=== PATIENT | female | born 1945 | race Caucasian/White ===

== ENCOUNTER → 2019-06-02 09:31 | Outpatient (CLI) | payer MEDICARE, SELFPAY ==
--- NOTE | ~2019-06-02 | XR_ITS ---
EXAMINATION: XR chest 2V EXAM DATE: 06/02/2019 09:43 INDICATION: Cough since March. Left-sided ear infection. TECHNIQUE: Frontal and lateral projections of the chest obtained and reviewed. Comparison is made to prior examination from 04/14/2018. FINDINGS: The lungs are clear. There are no pleural effusions. The cardiomediastinal silhouette is within normal limits. There is no pneumothorax suspected. The bones and soft tissues are unremarkab le. Left axillary surgical clips. Mild to moderate chronic hyperinflation. There is moderate slidin g gastroesophageal hiatal hernia. IMPRESSION: 1. No acute cardiopulmonary findings. 2. Moderate-sized hiatal hernia. 3. Mild to moderate hyperinflation. Reviewed, dictated and finalized at location A. TRIC HOIST OPERATOR
== END ==
PROVIDERS: PCP Family Medicine; Visit Provider Family Medicine
DX: R05 Cough (principal); R91.8 Other nonspecific abnormal finding of lung field; K44.9 Diaphragmatic hernia without obstruction or gangrene
CPT/HCPCS: 71046

== ENCOUNTER 2020-01-23 08:32 | Outpatient (CLI) | payer MEDICARE, SELFPAY ==
--- NOTE | ~2020-01-23 | MR_ITS ---
EXAMINATION: MR cervical spine wo con EXAM DATE: 01/23/2020 09:36 INDICATION: Cervical radiculopathy. TECHNIQUE: Multi-sequential, multiplanar MR images of the cervical spine were obtained without contra st. Axial T2, axial T2 MERGE sequence. Sagittal T1, T2, T2 fat saturation images also obtained. Th ere is no prior study for comparison. FINDINGS: There is moderate to severe C5-6 disc disease, mild to moderate at C3-4, 4-5 and C6-7. The re is 2 mm anterolisthesis C6 on C7 and C7 on T1. The vertebral bodies are otherwise aligned. The spi nal cord signal intensity and intrinsic morphology is normal. Cervicomedullary junction is normal in appearance. There are no suspicious marrow signal abnormalities. Paraspinal soft tissue is unremarkab le. Level by level evaluation: C2-C3: Disc does not extend beyond the endplate margin. Uncovertebral joint arthropathy: None. Facet joint arthropathy: Severe left, moderate right. Neural foraminal stenosis: Mild left. Central canal stenosis: No stenosis. C3-C4: There is a mild to moderate diffuse disc bulge. Uncovertebral joint arthropathy: Moderate left, mild right. Facet joint arthropathy: Moderate to severe bilateral. Neural foraminal stenosis: Moderate to severe left, mild right. Central canal stenosis: Mild. C4-C5: There is a minimal diffuse disc bulge. Uncovertebral joint arthropathy: Mild to moderate bilateral. Facet joint arthropathy: Severe right, moderate left. Neural foraminal stenosis: Moderate right, mild left. Central canal stenosis: No stenosis. C5-C6: There is a mild diffuse disc bulge. Uncovertebral joint arthropathy: Severe right, mild to moderate left. Facet joint arthropathy: Moderate bilateral. Neural foraminal stenosis: Moderate to severe right, mild to moderate left. Central canal stenosis: Mild. C6-C7: There is a minimal diffuse disc bulge. Uncovertebral joint arthropathy: Mild to moderate left, mild right. Facet joint arthropathy: Moderate to severe right, mild left. Neural foraminal stenosis: No stenosis. Central canal stenosis: No stenosis. C7-T1: Disc does not extend beyond the endplate margin. Uncovertebral joint arthropathy: None. Facet joint arthropathy: Moderate bilateral. Neural foraminal stenosis: Mild right. Central canal stenosis: No stenosis. IMPRESSION: Some advanced arthropathy causing significant mid cervical neural foraminal stenosis as d etailed above. Reviewed, dictated and finalized at location A. IMPRESSION: Some advanced arthropathy causing significant mid cervical neural f oraminal stenosis as detailed above.
== END 2020-01-23 08:33 | disposition home or self-care (01) ==
PROVIDERS: Visit Provider Nurse Practitioner Adult Health
DX: M54.12 Radiculopathy, cervical region (principal)
CPT/HCPCS: 72141

== ENCOUNTER → 2020-06-24 10:00 | Outpatient (CLI) | payer MEDICARE, SELFPAY ==
--- NOTE | ~2020-06-24 | XR_ITS ---
EXAMINATION: XR foot LT 2V DATE: 06/24/2020 10:40 INDICATION: Acute gout due to renal impairment with left foot pain TECHNIQUE: Dorsoplantar and lateral views of the left foot were obtained. COMPARISON: None. FINDINGS: No fracture. Mild hallux valgus along with mild lateral subluxation of the first proximal phalanx at the metatarsophalangeal joint. Severe osteoarthritis at the first metatarsophalangeal joint with seco ndary remodeling of the base of the first proximal phalanx. Additional mild polyarticular osteoarthri tis at multiple additional joints in the mid and forefoot. No cortical erosions to suggest an inflamm atory arthritis or crystalline arthropathy. Small Achilles and plantar calcaneal spurs. IMPRESSION: 1. Polyarticular osteoarthritis in the left foot, severe at the first metatarsophalangeal joint and o therwise mild. Reviewed, dictated and finalized at location A. CROSS EXECUTIVE DIRECTOR IMPRESSION: 1. Polyarticular osteoarthritis in the left foot, severe at the first metatarso phalangeal joint and otherwise mild.
== END ==
DX: M10.372 Gout due to renal impairment, left ankle and foot (principal); M19.072 Primary osteoarthritis, left ankle and foot
CPT/HCPCS: 73620

== ENCOUNTER 2020-07-04 11:14 | Observation (INO) | payer MEDICARE, SELFPAY ==
[2020-07-04] VITALS (10 sets, daily range): BP systolic 135–168; BP diastolic 57–79; PULSE 59–68; RESP 20; TEMP 36.3–36.6; O2SAT 95–99; BMI 25.1
--- NOTE | ~2020-07-04 | CT_ITS ---
EXAMINATION: CT brain wo con DATE: 07/04/2020 12:34 INDICATION: Altered mental status. Confusion. TECHNIQUE: Computed tomography (CT) of the head was performed without intravenous contrast. The mA wa s adjusted according to patient size. Iterative reconstruction technique was employed. The dose-lengt h product was 605.33 mGy-cm. COMPARISON: Head CT 04/14/2012 FINDINGS: There is no intracranial hemorrhage, acute infarction, or abnormal intracranial mass lesion . The ventricles are normal in size. The orbits are normal. There is mild mucosal thickening in the p aranasal sinuses. There is a small right mastoid effusion. IMPRESSION: 1. Normal brain. Reviewed, dictated and finalized at location A. MBLER TESTER IMPRESSION: 1. Normal brain.
--- NOTE | ~2020-07-04 | MR_ITS ---
EXAMINATION: MR brain/brain stem wo con EXAM DATE: 07/05/2020 08:00 INDICATION: Transient confusion . TECHNIQUE: Magnetic resonance imaging (MRI) of the brain/brain stem obtained without contrast. Sagitt al T1, axial diffusion, gradient echo (T2*), T1, T2, FLAIR sequences obtained. Correlation is made t o head CT from yesterday. FINDINGS: There are no areas of restricted diffusion to suggest acute infarction. There is no acute hemorrhage seen on the T2*, a hemosiderin sensitive sequence. No intraparenchymal brain mass. The ve ntricles are normal in size. There are no extra-axial collections. Flow voids are seen in the cereb ral arteries on the T2-weighted sequences consistent with their expected patency. Patient has had bi lateral ocular lens surgery. Soft tissue is unremarkable. Moderate amount of right mastoid opacifica tion. IMPRESSION: Unremarkable brain MRI examination. Right mastoid effusion. Reviewed, dictated and finalized at location B. TION AGENT
--- NOTE | ~2020-07-04 | US_ITS ---
EXAMINATION: US carotid duplex BI EXAM DATE: 07/05/2020 08:17 INDICATION: Transient confusion. TECHNIQUE: Grayscale, color and pulsed Doppler images of the cervical carotid arteries were obtained . The degree of vessel stenosis is placed in one of the following categories: normal, <50% stenosis, 50-69% stenosis, >=70% stenosis but less than near-occlusion, near-occlusion, or occlusion. Note that percent stenosis relative to normal distal artery lumen diameter is indirectly measured from velocit y measurements as described by Prieto, et al. Radiology 2003; 229:340-346. There is no prior study fo r comparison. FINDINGS: RIGHT SIDE: Right common carotid artery peak systolic velocity (PSV in cm/s): 72 Right bulb/internal carotid artery peak systolic velocity (PSV in cm/s): 94 Right internal carotid artery end diastolic velocity (EDV in cm/s): 25 Right ICA/CCA peak systolic ratio: 1.3 Right external carotid artery peak systolic velocity (PSV in cm/s): 75 Right vertebral artery antegrade flow: yes There is no focal plaque identified. LEFT SIDE: Left common carotid artery peak systolic velocity (PSV in cm/s): 67 Left bulb/internal carotid artery peak systolic velocity (PSV in cm/s): 75 Left internal carotid artery end diastolic velocity (EDV in cm/s): 34 Left ICA/CCA peak systolic ratio: 1.1 Left external carotid artery peak systolic velocity (PSV in cm/s): 84 Left vertebral artery antegrade flow: yes There is no focal plaque identified. IMPRESSION: 1. Normal right internal carotid artery. 2. Normal left internal carotid artery. Reviewed, dictated and finalized at location B. DENTIAL CASE MANAGER
[2020-07-04 11:34] LABS: Glucose Point of Care 90 (65-105)
--- NOTE | 2020-07-04 11:43 | ECG_ITS ---
Measurements Intervals [place] Rate: 67 P: 77 ND: 228 QRS: 29 QRSD: 99 T: 40 QT: 417 QTc: 443 Interpretive Statements SINUS RHYTHM WITH FIRST DEGREE AV BLOCK BORDERLINE R WAVE PROGRESSION, ANTERIOR LEADS BORDERLINE ST-T WAVE ABNORMALITY- INFERIOR LEADS BASELINE ARTIFACT- I, II, III, AVR, AVL, AVF, V5 ABNORMAL ECG Electronically Signed On 07-04-2020 11:49:41 MOTOR VEHICLE TECHNICIAN by Ethan Rivera D.O.
[2020-07-04 12:03] LABS: Add Urine Microscopic? YES; Appearance Urine Clear (Clear); Bacteria Urine Trace /hpf; Bilirubin Urine Negative (Negative); Blood Urine Negative (Negative); Color Urine Yellow (Yellow); Glucose Urine UA Negative (Negative); Ketones Urine Negative (Negative); Leukocyte Esterase Ur Trace LEU/UL (Negative); Mucus Urine Rare /lpf; Nitrate Urine Negative (Negative); Protein Urine Negative (Negative); RBC Urine 0-2 /hpf (0-2); Specific Grav Ur 1.013 (1.001-1.035); Squamous Epithelial Cell Urine Many /hpf (Few); Urobilinogen Urine Negative mg/dL (<2.0); WBC Urine 0-3 /hpf
[2020-07-04 12:13] LABS: Basophils Percent Auto 0.7 % (0.2-1.2); Eosinophils Absolute Auto 0.1 K/mm3 (0-0.3); Eosinophils Percent Auto 2.2 % (0-4.4); Hematocrit 47.3 % (37.0-47.0); Hemoglobin 15.1 g/dL (12.0-15.0); Immature Granulocyte Absolute 0.03 K/mm3 (0.00-0.031); Immature Granulocyte Percent A 0.5 % (0-0.5); Lymphocytes Absolute Auto 1.03 K/mm3 (0.9-3.2); Lymphocytes Percent Auto 18.5 % (18.3-44.2); Mean Corpuscular HGB Conc 31.9 g/dl (32-36); Mean Corpuscular Hemoglobin 28.7 pg (26-34); Mean Corpuscular Volume 89.9 fl (80-100); Mean Platelet Volume 9.4 fl (7.4-10.4); Monocytes Absolute Auto 0.5 K/mm3 (0.1-0.6); Monocytes Percent Auto 9.7 % (2.6-8.5); Neutrophils Absolute Auto 3.8 K/mm3 (1.3-6.7); Neutrophils Percent Auto 68.4 % (45.5-73.1); Platelet Count Result 278 k/mm3 (150-375); Red Blood Count 5.26 M/mm3 (4.2-5.4); White Blood Count 5.6 K/mm3 (4.5-10.0)
--- NOTE | 2020-07-04 12:36 | ED.GENADULT ---
HPI - General Adult General Chief complaint: Altered Mental Status Stated complaint: confusion Time Seen by Provider: 07/04/20 11:43 Source: patient History of Present Illness HPI narrative: Patient is a 74 y/o female complaining of feeling confused when she woke up this morning. She states that she felt out of sorts. She could not remember the day. There is no known alleviating or exacerbating factor. However, her symptoms are mostly resolved at this time. She has no headache, focal weakness, numbness or speech difficulty. Related Data Home Medications Medication Instructions Recorded Confirmed cyclosporine [Restasis] 0.5 % OPHTHALMIC (EYE) DAILY 03/24/19 07/04/20 ascorbic acid (vitamin C) [Vitamin 1 g PO DAILY 02/04/20 07/04/20 C] levothyroxine 88 mcg PO HS 07/04/20 07/04/20 trazodone 50 mg PO .QHS PRN 07/04/20 07/04/20 Allergies Allergy/AdvReac Type Severity Reaction Status Date / Time diclofenac Allergy Severe Swelling Verified 07/04/20 15:39 of Lip/Tongue/Throat Review of Systems Constitutional: Constitutional: Denies chills, Denies fever(s), Denies headache(s) and Denies weakness Eyes: Eyes: Denies blurry vision ENT: Denies headache(s) and Denies neck pain Cardiovascular: Cardiovascular: Denies chest pain and Denies dyspnea Respiratory: Respiratory: Denies cough and Denies dyspnea Gastrointestinal: Gastrointestinal: Denies abdominal pain, Denies diarrhea, Denies nausea and Denies vomiting Genitourinary: Genitourinary: Denies hematuria and Denies dysuria Musculoskeletal: Musculoskeletal: Denies back pain and Denies neck pain Neurologic: Reports as per HPI, Reports confusion, Denies headache(s), Reports memory loss and Denies weakness [facility] Past Medical History Medical History (Updated 07/04/20 @ 16:33 by Elzbieta Mccormick MD) Arthritis Cancer of left breast Status post lumpectomy and chemoradiotherapy. Chronic cough Hypercholesterolemia Hypertension Hypothyroidism Iron deficiency anemia Mitral valve prolapse Neck pain Cervical MRI in December 2019 showed advanced arthropathy causing significant mid cervical neural foraminal stenosis. Obstructive sleep apnea on CPAP Osteoarthritis, multiple sites Osteoporosis Surgical History Surgical History (Updated 07/04/20 @ 14:51 by Kristen G. Gerling, PA-C) History of bilateral cataract extraction History of left shoulder replacement History of lumpectomy of left breast As treatment for breast cancer. History of right hip replacement Family History Family History Other Diabetes mellitus Family history of coronary artery disease Family history of emphysema Social History Social History (Updated 07/04/20 @ 14:52 by Kristen Tang PA-C) Social History: The patient is and lives with her in [place]. Lifelong nonsmoker. No alcohol or illicit substance abuse. She designates her Arcenio as her surrogate decision maker and she wishes to be a full code. Smoking status: Never smoker Alcohol intake: current Drinks per week: 1 Substance use: never Substance use type: does not use Gender identity (if verbalized by the patient): Female Spiritual care concerns: No Exam Const: General: no acute distress and well developed Orientation/consciousness: oriented to person, oriented to place, oriented to time and patient oriented x3 HENMT: Head: normocephalic Ears: external ears normal General nose exam: Normal external nose present Eyes: General: appearance normal, both eyes and all related structures Conjunctivae: conjunctivae normal Neck: Neck: normal visual inspection and full ROM Chest: Chest palpation & inspection: normal inspection of the chest and no tenderness Resp: Effort & Inspection: normal respiratory effort Auscultation: clear to auscultation bilaterally Cardio: Rate: regular rate Rhythm: regular rhythm GI:
[2020-07-04 13:46] LABS: Alanine Aminotransferase 20 U/L (4-35); Alkaline Phosphatase 103 U/L (38-126); Anion Gap 2 mmol/L (8-16); Aspartate Amino Transferase 34 U/L (14-36); Bilirubin,Total 0.5 mg/dL (0.2-1.3); Blood Urea Nitrogen 18 mg/dL (7-17); Calcium 9.8 mg/dL (8.4-10.2); Carbon Dioxide 32 mmol/L (22-30); Chloride 105 mmol/L (98-107); Estimated CRCL calculation 36 ml/min; Estimated Glomerular Filt Rate 54; Glucose 86 mg/dL (65-105); Potassium 4.2 mmol/L (3.4-5.0); Sodium 139 mmol/L (137-145)
--- NOTE | 2020-07-04 15:00 | PM.IMHP ---
H&P: HPI History of Present Illness Date/Time: 07/04/20 15:00 Chief Complaint: Confusion. Narrative: This is a 74-year-old female with hypertension, sleep apnea, hypothyroidism, and history of transient global amnesia who presented to the emergency department earlier today via private vehicle from home for evaluation of confusion. The patient was in her usual state of health when she woke this morning and statin occasion to have coffee with her . He then left with their neighbor to go run an errand and not long thereafter she noticed that both cars were in the driveway and she was wondering where her was as she had not remember that he had left with the neighbor. She tells me that she just felt foggy and ?out of sorts? for what sounds like several hours. At the time my evaluation she is back to her usual state of health. The symptoms are somewhat similar to when she had transient global amnesia in the past but not exactly so. She denies vertigo, auditory visual changes, focal weakness, paresthesias, facial droop, dysarthria, and dysphagia. It is noted that her blood pressures have been a bit high and she tells me she was taken off her triamterene last month by her primary care provider. Review of Systems Review of Systems: Narrative: Twelve systems are reviewed with pertinent positives and negatives as per HPI. No fever, chills, or sweats. She has been suffering from neck pain is seeing pain management and in fact had injections done recently without much benefit unfortunately. She takes for 500 milligram tablets of acetaminophen a day which seems to help somewhat. No radiculopathy symptoms in her upper extremities. No history of cardiac dysrhythmia. She has fallen out of favor of using her CPAP however has been increasingly tired throughout the day and in the mornings and is going to start using it again. She is treated by Dr. Barbosa for vitamin B12 and iron deficiency anemia. Most recently she was told to start taking her iron supplementation is 3 times a day instead of twice a day however her hemoglobin and hematocrit are well within normal limits if not a bit elevated. Except as documented, all other systems were reviewed and are negative. [facility] Past Medical History Medical History (Updated 07/04/20 @ 16:33 by Elzbieta Mccormick MD) Arthritis Cancer of left breast Status post lumpectomy and chemoradiotherapy. Chronic cough Hypercholesterolemia Hypertension Hypothyroidism Iron deficiency anemia Mitral valve prolapse Neck pain Cervical MRI in December 2019 showed advanced arthropathy causing significant mid cervical neural foraminal stenosis. Obstructive sleep apnea on CPAP Osteoarthritis, multiple sites Osteoporosis Surgical History Surgical History (Updated 07/04/20 @ 17:29 by Kristen Tang PA-C) History of bilateral cataract extraction History of left hip replacement History of left shoulder replacement History of lumpectomy of left breast As treatment for breast cancer. History of right hip replacement History of tubal ligation Family History Family History Other Diabetes mellitus Family history of coronary artery disease Family history of emphysema Social History Social History (Updated 07/04/20 @ 14:52 by Kristen Tang PA-C) Social History: The patient is and lives with her in [place]. Lifelong nonsmoker. No alcohol or illicit substance abuse. She designates her Arcenio as her surrogate decision maker and she wishes to be a full code. Smoking status: Never smoker Alcohol intake: current Drinks per week: 1 Substance use: never Substance use type: does not use Gender identity (if verbalized by the patient): Female Spiritual care concerns: No Meds Home Medications and Allergies Home Medications Medication Instructions Recorded Confirmed Type cyclosporine [Restasis] 0
[2020-07-04 15:41] LABS: Troponin I < 0.012 ng/mL (0.000-0.034)
--- NOTE | 2020-07-04 15:52 | ADMGEN ---
This patient, Janny Anaya, was admitted to Medical Room 257-01. Patient/family oriented to hospital policies and general routines including ID bracelet, bed and alarms, visiting hours, pain management, procedures, bathroom and other care routines, personal items, smoking policy, room service/diet, and visiting hours. Information on how to activate the Rapid Response Team has been discussed. Patient/Family are encouraged to report perceived risks to care and to ask questions if they do not understand what they are told or what they should do.
[2020-07-04 19:09] LABS: Magnesium 1.5 mg/dL (1.6-2.3)
[2020-07-04 19:22] LABS: Troponin I < 0.012 ng/mL (0.000-0.034)
[2020-07-04 19:31] LABS: Ammonia 13 umol/L (9-30); Iron 61 ug/dL (37-170)
[2020-07-04 19:33] LABS: Percent Iron Saturation 24 % (20-50)
[2020-07-04 19:56] LABS: Thyroid Stimulating Hormone Reflex 0.032 uIU/mL (0.465-4.68)
[2020-07-04 20:16] LABS: Folic Acid 9.8 ng/mL (2.76->20)
[2020-07-04 20:46] LABS: Free T4 Free Thyroxine Reflex 1.21 ng/dL (0.78-2.19)
[2020-07-04] MEDS: LEVOTHYROXINE SODIUM 88 MCG TABLET PO (21:22)
[2020-07-04 21:52] LABS: Troponin I < 0.012 ng/mL (0.000-0.034)
[2020-07-04 23:07] LABS: Total Triiodothyronine (T3) 0.98 NG/ML (0.97-1.69)
[2020-07-05] VITALS: PULSE 64
--- NOTE | 2020-07-05 | ECHO_ITS ---
Patient Info Name: Janny Anaya Age: 74 years : 1945 Gender: Female Ht: 63 in Wt: 141 lbs BSA: 1.70 m2 HR: 59 bpm BP: 130 / 70 mmHg Heart Rhythm: Sinus Rhythm Technical Quality: Good Exam Date: 07/05/2020 9:12 AM Exam Location: [facility] Patient Status: Outpatient Admit Date: 07/04/2020 Staff Ordering Physician: Kristen Tang PA-C Fulfillment Coordinator: Marcell Mclean RDCS, RT Attending Provider: Kun Pugh PA-C Referring Physician: Clyde DHALIWAL; Exam Type: CA echo doppler color flow Study Info Indications I10 - Essential (primary) hypertension Complete two-dimensional, color flow and Doppler transthoracic echocardiogram is performed. Strain analysis performed. Summary 1. Complete two-dimensional, color flow and Doppler transthoracic echocardiogram is performed. 2. Left ventricular chamber dimension is normal. 3. Left ventricular systolic function is normal, estimated at 55-60%. 4. There is no increased left ventricular wall thickness. 5. Left ventricular septal wall motion is normal. 6. Global longitudinal strain is normal at -18 %. 7. The left ventricular diastolic function is grade I diastolic dysfunction. 8. Left atrial chamber dimension is moderately enlarged. 9. There is mild mitral valve regurgitation. 10. There is mild tricuspid valve regurgitation. 11. Strain analysis performed. Left Ventricle Left ventricular chamber dimension is normal. Left ventricular systolic function is normal, estimated at 55-60%. There is no increased left ventricular wall thickness. Left ventricular septal wall motion is normal. The left ventricular diastolic function is grade I diastolic dysfunction. Global longitudinal strain is normal at -18 %. Right Ventricle Right ventricular chamber dimension is normal. Right ventricular systolic function is normal. Left Atria Left atrial chamber dimension is moderately enlarged. Right Atria Right atrial chamber dimension is normal. Atrial Septum Intact interatrial septum visualized by color flow imaging. Aortic Valve The aortic valve is probable trileaflet. There is mild aortic valve sclerosis. There is no aortic valve stenosis. There is trace aortic valve regurgitation. Pulmonic Valve The pulmonic valve is not well visualized. There is no pulmonic valve stenosis. There is trace pulmonic regurgitation. Mitral Valve The mitral valve has normal leaflets. There is no mitral valve stenosis. There is mild mitral valve regurgitation. Tricuspid Valve The tricuspid valve leaflets are normal. There is no significant tricuspid valve stenosis. There is mild tricuspid valve regurgitation. No pulmonary hypertension, estimated pulmonary arterial systolic pressure is 29 mmHg. Pericardium/Pleural The pericardium appears normal. There is no pericardial effusion. Inferior Vena Cava Normal inferior vena cava with >50% collapse upon inspiration consistent with normal right atrial pressure, 5 mmHg. Aorta The aortic root size at the sinus of Valsalva is normal. The prox ascending aorta size is normal. Left Ventricular Outflow Tract Name Value Normal LVOT 2D LVOT Diameter 1.9 cm LVOT
[2020-07-05 04:00] VITALS: PULSE 62
[2020-07-05 05:02] VITALS: BP 130/70; PULSE 62; RESP 18; TEMP 36.5; O2SAT 97
[2020-07-05 05:51] LABS: Hemoglobin 13.3 g/dL (12.0-15.0); Mean Corpuscular HGB Conc 31.7 g/dl (32-36); Mean Corpuscular Hemoglobin 28.7 pg (26-34); Mean Corpuscular Volume 90.5 fl (80-100); Platelet Count Result 212 k/mm3 (150-375); Red Blood Count 4.64 M/mm3 (4.2-5.4); Red Cell Distribution Width 12.9 % (11.5-14.5); White Blood Count 3.7 K/mm3 (4.5-10.0)
[2020-07-05 06:08] LABS: Anion Gap 3 mmol/L (8-16); Blood Urea Nitrogen 16 mg/dL (7-17); Calcium 9.3 mg/dL (8.4-10.2); Carbon Dioxide 28 mmol/L (22-30); Chloride 108 mmol/L (98-107); Estimated CRCL calculation 33 ml/min; Estimated Glomerular Filt Rate 49; Glucose 83 mg/dL (65-105); Magnesium 1.5 mg/dL (1.6-2.3); Potassium 3.5 mmol/L (3.4-5.0); Sodium 139 mmol/L (137-145)
[2020-07-05] MEDS: PARoxetine 20 MG TABLET PO (08:33)
[2020-07-05] MEDS: amLODIPine BESYLATE 5 MG TABLET PO (08:33)
[2020-07-05] MEDS: ASCORBIC ACID 500 MG TABLET 1000 MG PO (08:34)
[2020-07-05 08:49] VITALS: PULSE 70
[2020-07-05 10:54] VITALS: O2SAT 95
--- NOTE | 2020-07-05 12:41 | PM.DS ---
DS: Admitting Diagnosis Admitting Diagnosis Admitting Diagnosis: Transient confusion DS: Discharge Diagnosis Discharge Diagnosis (1) Transient confusion: Code(s): R41.0 - Disorientation, unspecified Status: Acute Assessment and Plan: Etiology of her transient confusion is not clear at this time, although likely transient global amnesia given her history. Differential includes TIA. Brain MRI unremarkable for acute findings and carotid doppler unremarkable, as well. Echo pending to be read. Tele shows sinus rhythm with occasional PVCs/PACs; asymptomatic. Her confusion has resolved F/u with her PCP in 1-2 weeks Rec no driving until follow up with PCP Will follow Echo results (2) Hypertension: Code(s): I10 - Essential (primary) hypertension Status: Chronic Assessment and Plan: BP much improved since yesterday. She has recently stopped taking triamterene/HCTZ, but notes her PCP might resume this in the future Continue other home medications f/u with PCP (3) Hypothyroidism: Qualifiers: Hypothyroidism type: unspecified Qualified Code(s): E03.9 - Hypothyroidism, unspecified Code(s): E03.9 - Hypothyroidism, unspecified Status: Acute Assessment and Plan: TSH low with normal free t4 and total t3 Continue home medication Rec recheck lab in 4-6 weeks or when recommended by PCP (4) Obstructive sleep apnea on CPAP: Code(s): G47.33 - Obstructive sleep apnea (adult) (pediatric); Z99.89 - Dependence on other enabling machines and devices Status: Chronic Assessment and Plan: CPAP (5) Iron deficiency anemia: Code(s): D50.9 - Iron deficiency anemia, unspecified Status: Chronic Assessment and Plan: H&H wnl. TIBC mildly low; iron level, %sat, and ferritin low side of normal Continue supplementation f/u with PCP (6) Chest pain: Code(s): R07.9 - Chest pain, unspecified Status: Acute Assessment and Plan: Patient had midsternal chest pain evening of 07/03 and has resolved. No exertional chest pain or SOB or significant hx of cardiac disease. Serial troponins negative. EKG shows sinus rhythm with first degree av block with borderline ST-T wav abnormality in inferior leads and borderline r wave progression in anterior leads f/u with PCP DS: Summary Hospital Course Reason for hospitalization: Transient confusion, CVA r/o Hospital Course: Date of arrival:07/04/20 Date of discharge: 07/05/20 Patient is a 74-year-old female with hypertension, sleep apnea, hypothyroidism, and history of transient global amnesia who presented to the emergency department on 07/04 via private vehicle from home for evaluation of confusion. Patient had an episode of confusion while at home and reported the symptoms were somewhat similar to when she had transient global amnesia in the past but not exactly so. While in the ED, CT head was unremarkable for acute findings. TGA was suspected, although it was felt prudent to rule out CVA, thus patient admitted under this setting. Please see H&P for further details. Patient was admitted to the hospitalist service for further management/treatment. While admitted, patient underwent Brain MRI and carotid doppler which were grossly unremarkable for etiology behind symptoms. Echo was performed, however, results were finalized after discharge; these were relayed to patient after discharge. By the time of the admission, symptoms had completely resolved and she had no residual symptoms by day of discharge. Suspected diagnosis was TGA although TIA less likely. Plan was for her to follow up with her PCP in 1-2 weeks. It was recommended she not drive until instructed by her PCP. TSH was found to be mil
== END 2020-07-05 14:05 | disposition home or self-care (01) ==
LOC: ANHED 11:46 → ANH2MED 15:09
PROVIDERS: Physician Assistant; Admitting Provider Internal Medicine; Emergency Provider Emergency Medicine; Visit Provider Physician Assistant
DX: R41.0 Disorientation, unspecified (principal); R07.89 Other chest pain; G45.4 Transient global amnesia; I10 Essential (primary) hypertension; E78.00 Pure hypercholesterolemia, unspecified; E03.9 Hypothyroidism, unspecified; D50.9 Iron deficiency anemia, unspecified; I34.1 Nonrheumatic mitral (valve) prolapse; M81.0 Age-related osteoporosis without current pathological fracture; G47.33 Obstructive sleep apnea (adult) (pediatric); M19.90 Unspecified osteoarthritis, unspecified site; Z85.3 Personal history of malignant neoplasm of breast; Z92.21 Personal history of antineoplastic chemotherapy; I34.0 Nonrheumatic mitral (valve) insufficiency; I36.1 Nonrheumatic tricuspid (valve) insufficiency
CPT/HCPCS: 36415; 70450; 70551; 80048; 80053; 81001; 82140; 82607; 82728; 82746; 82948; 83540; 83550; 83735; 84439; 84443; 84480; 84484; 85025; 85027; 93005; 93306; 93880; 99285; A9270; G0378

== ENCOUNTER 2020-09-12 14:15 | Outpatient (CLI) | payer MEDICARE, SELFPAY ==
[2020-09-12 17:34] LABS: Anion Gap 4 mmol/L (8-16); Blood Urea Nitrogen 20 mg/dL (7-17); Calcium 10.5 mg/dL (8.4-10.2); Carbon Dioxide 32 mmol/L (22-30); Chloride 102 mmol/L (98-107); Estimated Glomerular Filt Rate 44; Glucose 93 mg/dL (65-105); Potassium 3.4 mmol/L (3.4-5.0); Sodium 138 mmol/L (137-145)
[2020-09-12 18:04] LABS: Thyroid Stimulating Hormone 0.144 uIU/mL (0.465-4.680)
== END 2020-09-12 14:16 | disposition home or self-care (01) ==
LOC: ANHLAB 15:00
PROVIDERS: Visit Provider Internal Medicine Hematology & Oncology
DX: E03.9 Hypothyroidism, unspecified (principal); E87.6 Hypokalemia
CPT/HCPCS: 36415; 80048; 84443

== ENCOUNTER 2020-11-01 08:15 | Outpatient (CLI) | payer MEDICARE, SELFPAY ==
[2020-11-01 08:35] LABS: Total Volume 24 Hour Urine 1600 ml
[2020-11-01 08:44] LABS: Creatinine 24 Hour Urine 0.9 gm/24 (0.8-1.8); Creatinine Urine 59.1 mg/dL
== END 2020-11-01 08:16 | disposition home or self-care (01) ==
DX: M81.0 Age-related osteoporosis without current pathological fracture (principal)
CPT/HCPCS: 81050; 82570

== ENCOUNTER → 2021-08-16 13:08 | Outpatient (CLI) | payer MEDICARE, SELFPAY ==
--- NOTE | ~2021-08-16 | XR_ITS ---
EXAMINATION: XR hand RT min 3V, XR hand LT min 3V DATE: 08/16/2021 13:49 INDICATION: Bilateral thumb pain TECHNIQUE: 1. Posteroanterior, oblique and lateral views of the left hand were obtained. 2. Posteroanterior, oblique and lateral views of the right hand were obtained. COMPARISON: None. FINDINGS: Diffuse osteopenia. 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 No fracture. Polyarticular osteoarthritis, severe at the triscaphe and first carpal meta carpal joints, moderate severity at the at several of the bilateral metacarpophalangeal and interphal angeal joints and mild at the distal radioulnar, wrist, midcarpal and remaining metacarpophalangeal a nd interphalangeal joints. Chondrocalcinosis at the left clavicular fibrocartilage complex. IMPRESSION: 1. Moderate to severe polyarticular osteoarthritis at the bilateral hands and wrists. Reviewed, dictated and finalized at location A. IMPRESSION: 1. Moderate to severe polyarticular osteoarthritis at the bilateral hands and w rists.
== END ==
DX: M19.041 Primary osteoarthritis, right hand (principal); M19.042 Primary osteoarthritis, left hand; M19.031 Primary osteoarthritis, right wrist; M19.032 Primary osteoarthritis, left wrist
CPT/HCPCS: 73130

== ENCOUNTER 2021-11-29 09:52 | Emergency (ER) | payer MEDICARE, SELFPAY ==
[2021-11-29 10:02] VITALS: BP 141/82; PULSE 66; RESP 16; TEMP 37.5; O2SAT 98
--- NOTE | 2021-11-29 10:33 | ED.URI ---
HPI - URI/Sore Throat General Chief Complaint: Upper Respiratory Infection Stated Complaint: sore throat Time Seen by Provider: 11/29/21 10:33 Source: patient Mode of arrival: ambulatory Limitations: no limitations History of Present Illness HPI Narrative: 76 yo F presents with c/o nasal/sinus congestion, sore throat, cough for 4 days. Afebrile. Taking coricidin with no relief. did home covid test yesterday but states she had difficulty swabbing herself. Would like another test. Denies CP/SOB. All systems reviewed and negative except as noted above. Related Data Home Medications Medication Instructions Recorded Confirmed cyclosporine 0.05 % eye drops in a 0.5 % ophthalmic (eye) DAILY 03/24/19 11/22/21 dropperette (Restasis) ascorbic acid (vitamin C) 1,000 mg 1 g PO DAILY 02/04/20 11/22/21 tablet (Vitamin C) trazodone 50 mg tablet 50 mg PO .QHS PRN Insomnia 07/04/20 11/22/21 colchicine 0.6 mg tablet 0.6 mg PO DAILY 09/14/20 11/22/21 B-12 MONTHLY 11/29/21 amlodipine 10 mg tablet mg 11/29/21 hydrochlorothiazide 12.5 mg tablet mg 11/29/21 levothyroxine 75 mcg tablet mcg 11/29/21 Allergies Allergy/AdvReac Type Severity Reaction Status Date / Time diclofenac Allergy Severe Swelling Verified 09/27/21 11:23 of Lip/Tongue/Throat Review of Systems Review of Systems: CONSTITUTIONAL: Denies fever, chills, or sweats. EYES: Denies visual changes, redness, or discharge. ENT: Reports rhinorrhea, congestion, sore throat and reports left ear pain. CARDIOVASCULAR: Denies chest pain, palpitations, or edema. RESPIRATORY: Reports cough. Denies dyspnea. GASTROINTESTINAL: Denies abdominal pain, nausea, vomiting, or diarrhea. GENITOURINARY: Denies dysuria or hematuria. SKIN: Denies rash or itching. MUSCULOSKELETAL: Denies back pain, joint pain, or myalgia. NEUROLOGIC: Denies headache, numbness, or weakness. PSYCHIATRIC: Denies anxiety or depression. All other systems reviewed are negative, except as documented in HPI. [facility] Past Medical History Medical History (Updated 11/29/21 @ 11:23 by Crystal Tompkins NP) Arthritis Cancer of left breast Status post lumpectomy and chemoradiotherapy. Chronic cough Hypercholesterolemia Hypertension Hypothyroidism Iron deficiency anemia Mitral valve prolapse Neck pain Cervical MRI in December 2019 showed advanced arthropathy causing significant mid cervical neural foraminal stenosis. Obstructive sleep apnea on CPAP Osteoarthritis, multiple sites Osteoporosis Surgical History Surgical History (Updated 07/04/20 @ 17:29 by Kristen Tang PA-C) History of bilateral cataract extraction History of left hip replacement History of left shoulder replacement History of lumpectomy of left breast As treatment for breast cancer. History of right hip replacement History of tubal ligation Family History Family History Other Diabetes mellitus Family history of coronary artery disease Family history of emphysema Social History Social History (Updated 07/04/20 @ 14:52 by Kristen Tang PA-C) Social History: The patient is and lives with her in [place]. Lifelong nonsmoker. No alcohol or illicit substance abuse. She designates her Arcenio as her surrogate decision maker and she wishes to be a full code. Smoking status: Never smoker Alcohol intake: current Drinks per week: 1 Substance use: never Substance use type: does not use Gender identity (if verbalized by the patient): Female Spiritual care concerns: No Comments At time of signature, agree with nursing past medical, surgical, social and family history. There is no relevant family history pertinent to the presenting complaint. Exam Narrative: GENERAL: This is a well-nourished, well-developed patient, in no apparent distress. HEAD: normocephalic, atraumatic. EYES: PERRL. Sclera clear/white. Vision
== END 2021-11-29 11:28 | disposition home or self-care (01) ==
PROVIDERS: Emergency Provider Nurse Practitioner Family
DX: J06.9 Acute upper respiratory infection, unspecified (principal); H65.02 Acute serous otitis media, left ear; Z20.822 Contact with and (suspected) exposure to COVID-19; M19.90 Unspecified osteoarthritis, unspecified site; E78.00 Pure hypercholesterolemia, unspecified; I10 Essential (primary) hypertension; E03.9 Hypothyroidism, unspecified; I34.1 Nonrheumatic mitral (valve) prolapse; G47.33 Obstructive sleep apnea (adult) (pediatric); M81.0 Age-related osteoporosis without current pathological fracture; Z98.42 Cataract extraction status, left eye; Z98.41 Cataract extraction status, right eye; Z96.612 Presence of left artificial shoulder joint; Z85.3 Personal history of malignant neoplasm of breast; Z96.643 Presence of artificial hip joint, bilateral
CPT/HCPCS: 87426; 99213; C9803; G0463

== ENCOUNTER 2021-12-18 11:32 | Outpatient (CLI) | payer MEDICARE, SELFPAY ==
[2021-12-18 16:42] LABS: Anion Gap 8 mmol/L (8-16); Blood Urea Nitrogen 27 mg/dL (7-17); Calcium 10.1 mg/dL (8.4-10.2); Carbon Dioxide 26 mmol/L (22-30); Chloride 101 mmol/L (98-107); Estimated Glomerular Filt Rate 48; Glucose 86 mg/dL (65-110); Potassium 3.7 mmol/L (3.4-5.0); Sodium 135 mmol/L (137-145)
== END 2021-12-18 11:33 | disposition home or self-care (01) ==
PROVIDERS: Visit Provider Internal Medicine Hematology & Oncology
DX: M81.0 Age-related osteoporosis without current pathological fracture (principal)
CPT/HCPCS: 36415; 80048

== ENCOUNTER 2022-08-19 12:46 | Emergency (ER) | payer MEDICARE, SELFPAY ==
--- NOTE | ~2022-08-19 | XR_ITS ---
EXAMINATION: XR chest 2V DATE: 08/19/2022 13:50 INDICATION: Productive cough TECHNIQUE: AP and lateral views of the chest are obtained. COMPARISON: 06/02/2019 FINDINGS: The lungs are free of acute opacities. No pleural effusion or pneumothorax. The cardiomedia stinal silhouette is normal. There is moderate thoracic spondylosis. There are changes of partial mas tectomy and left axillary lymph node dissection. There is a moderate-sized sliding hiatal hernia. IMPRESSION: 1. No acute cardiopulmonary abnormality. Reviewed, dictated and finalized at location A.
[2022-08-19 13:02] VITALS: BP 147/60; PULSE 70; RESP 16; TEMP 36.7; O2SAT 98
--- NOTE | 2022-08-19 13:40 | ED.URI ---
HPI - URI/Sore Throat General Chief Complaint: Upper Respiratory Infection Stated Complaint: cold/flu Time Seen by Provider: 08/19/22 13:40 Source: patient Mode of arrival: ambulatory Limitations: no limitations History of Present Illness HPI Narrative: 76-year-old female presents with complaint of cough, chest congestion for the past several days. Reports that symptoms started has sinus congestion, pressure, nasal congestion for the past 3 weeks. If still having no symptoms. Is concerned that she has a sinus infection or possibly a sinus infection that turned into pneumonia. Denies shortness of breath and Chest pain. Denies nausea vomiting diarrhea. Is taking gbvs-eix-eggbucy medications to treat her symptoms. Speaking in full sentences. No respiratory distress noted. Afebrile. All systems reviewed and negative except as noted above. Related Data Home Medications Medication Instructions Recorded Confirmed hydrochlorothiazide 12.5 mg tablet 12.5 mg PO DAILY 11/29/21 08/19/22 levothyroxine 75 mcg tablet 75 mcg PO DAILY 11/29/21 08/19/22 allopurinol 100 mg tablet 100 mg PO DAILY 08/19/22 08/19/22 losartan 50 mg tablet 50 mg PO DAILY 08/19/22 08/19/22 Allergies Allergy/AdvReac Type Severity Reaction Status Date / Time diclofenac Allergy Severe Swelling Verified 08/19/22 12:50 of Lip/Tongue/Throat Review of Systems Review of Systems: CONSTITUTIONAL: Denies fever, chills, or sweats. reports fatigue. EYES: Denies visual changes, redness, or discharge. ENT: Reports rhinorrhea, congestion, sore throat. Denies otalgia. CARDIOVASCULAR: Denies chest pain, palpitations, or edema. RESPIRATORY: reports cough. Denies dyspnea. GASTROINTESTINAL: Denies abdominal pain, nausea, vomiting, or diarrhea. GENITOURINARY: Denies dysuria or hematuria. SKIN: Denies rash or itching. MUSCULOSKELETAL: Denies back pain, joint pain, or myalgia. NEUROLOGIC: Denies headache, numbness, or weakness. PSYCHIATRIC: Denies anxiety or depression. All other systems reviewed are negative, except as documented in HPI. [facility] Past Medical History Medical History (Updated 08/19/22 @ 18:10 by Crystal Tompkins NP) Arthritis Cancer of left breast Status post lumpectomy and chemoradiotherapy. Chronic cough Hypercholesterolemia Hypertension Hypothyroidism Iron deficiency anemia Mitral valve prolapse Neck pain Cervical MRI in December 2019 showed advanced arthropathy causing significant mid cervical neural foraminal stenosis. Obstructive sleep apnea on CPAP Osteoarthritis, multiple sites Osteoporosis Surgical History Surgical History (Updated 07/04/20 @ 17:29 by Kristen Tang PA-C) History of bilateral cataract extraction History of left hip replacement History of left shoulder replacement History of lumpectomy of left breast As treatment for breast cancer. History of right hip replacement History of tubal ligation Family History Family History Other Diabetes mellitus Family history of coronary artery disease Family history of emphysema Social History Social History (Updated 07/04/20 @ 14:52 by Kristen Tang PA-C) Social History: The patient is and lives with her in [place]. Lifelong nonsmoker. No alcohol or illicit substance abuse. She designates her Arcenio as her surrogate decision maker and she wishes to be a full code. Smoking status: Never smoker Alcohol intake: current Drinks per week: 1 Substance use: never Substance use type: does not use Gender identity (if verbalized by the patient): Female Spiritual care concerns: No Comments At time of signature, agree with nursing past medical, surgical, social and family history. There is no relevant family history pertinent to the presenting complaint. Exam Narrative: GENERAL: This is a well-nourished, well-developed patient, in no ap
== END 2022-08-19 14:17 | disposition home or self-care (01) ==
PROVIDERS: Emergency Provider Nurse Practitioner Family
DX: R05.9 Cough, unspecified (principal); J01.90 Acute sinusitis, unspecified; M15.9 Polyosteoarthritis, unspecified; E78.00 Pure hypercholesterolemia, unspecified; I10 Essential (primary) hypertension; E03.9 Hypothyroidism, unspecified; D50.9 Iron deficiency anemia, unspecified; I34.1 Nonrheumatic mitral (valve) prolapse; G47.33 Obstructive sleep apnea (adult) (pediatric); M81.0 Age-related osteoporosis without current pathological fracture; Z98.42 Cataract extraction status, left eye; Z98.41 Cataract extraction status, right eye; Z96.611 Presence of right artificial shoulder joint; Z96.643 Presence of artificial hip joint, bilateral; Z85.3 Personal history of malignant neoplasm of breast
CPT/HCPCS: 71046; 99213; G0463

== ENCOUNTER 2022-08-27 10:16 | Emergency (ER) | payer MEDICARE, SELFPAY ==
[2022-08-27 10:28] VITALS: BP 146/71; PULSE 73; RESP 16; TEMP 36.4; O2SAT 97
--- NOTE | 2022-08-27 10:33 | ED.URI ---
HPI - URI/Sore Throat General Chief Complaint: Upper Respiratory Infection Stated Complaint: Sinus Time Seen by Provider: 08/27/22 10:30 Source: patient Mode of arrival: ambulatory Limitations: no limitations History of Present Illness HPI Narrative: Janny is a 76-year-old female patient presenting to the clinic today with complaints of sinus congestion, productive cough, and headache times 1 month. She reports that she was seen last week and given prescription for some prednisone however this did not really help. States she is bringing up some yellowish phlegm. History of frequent sinus infections. States she is leaving the country tomorrow. MD elicited complaint: cough, nasal congestion and sinus pain Related Data Home Medications Medication Instructions Recorded Confirmed hydrochlorothiazide 12.5 mg tablet 12.5 mg PO DAILY 11/29/21 08/27/22 levothyroxine 75 mcg tablet 75 mcg PO DAILY 11/29/21 08/27/22 allopurinol 100 mg tablet 100 mg PO DAILY 08/19/22 08/27/22 losartan 50 mg tablet 50 mg PO DAILY 08/19/22 08/27/22 Allergies Allergy/AdvReac Type Severity Reaction Status Date / Time diclofenac Allergy Severe Swelling Verified 08/19/22 12:50 of Lip/Tongue/Throat Review of Systems Review of Systems: Pertinent positives per HPI. Patient denies any fever, chills, rash, headache, visual changes, dizziness, shortness of breath, chest pain, palpitations, nausea, vomiting, diarrhea, constipation, abdominal pain, or any urinary issues. [facility] Past Medical History Medical History (Updated 08/27/22 @ 10:34 by Maximo Gonzalez, TOOLING MECHANIC) Arthritis Cancer of left breast Status post lumpectomy and chemoradiotherapy. Chronic cough Hypercholesterolemia Hypertension Hypothyroidism Iron deficiency anemia Mitral valve prolapse Neck pain Cervical MRI in December 2019 showed advanced arthropathy causing significant mid cervical neural foraminal stenosis. Obstructive sleep apnea on CPAP Osteoarthritis, multiple sites Osteoporosis Surgical History Surgical History (Updated 07/04/20 @ 17:29 by Kristen Tang PA-C) History of bilateral cataract extraction History of left hip replacement History of left shoulder replacement History of lumpectomy of left breast As treatment for breast cancer. History of right hip replacement History of tubal ligation Family History Family History Other Diabetes mellitus Family history of coronary artery disease Family history of emphysema Social History Social History (Updated 07/04/20 @ 14:52 by Kristen Tang PA-C) Social History: The patient is and lives with her in [place]. Lifelong nonsmoker. No alcohol or illicit substance abuse. She designates her Arcenio as her surrogate decision maker and she wishes to be a full code. Smoking status: Never smoker Alcohol intake: current Drinks per week: 1 Substance use: never Substance use type: does not use Gender identity (if verbalized by the patient): Female Spiritual care concerns: No Comments At the time of my signature, I reviewed and agree with the nursing past medical, surgical, social, and family history. There is no relevant family history pertinent to the patient complaint. Exam Narrative: General: Well-developed, well nourished, in no apparent distress Head: Normocephalic, atraumatic Eyes: Pupils equally round and reactive to light bilaterally, EOM intact, sclera and conjunctive clear, no discharge, lids normal Ears: TMs intact and clear, ear canals clear, no drainage, grossly hearing normal. Nose: Nares patent, no discharge, no inflammation, no sinus tenderness. Mouth: Oral pharynx without lesions or masses, good dentition, MMM. Neck: Supple, trachea midline, no enlargement of anterior or posterior cervical nodes, no thyroid masses or goiter palpable. Cardio: Regular rate and rhyth
== END 2022-08-27 10:39 | disposition home or self-care (01) ==
PROVIDERS: Emergency Provider Nurse Practitioner Family
DX: J01.90 Acute sinusitis, unspecified (principal); E78.00 Pure hypercholesterolemia, unspecified; I10 Essential (primary) hypertension; E03.9 Hypothyroidism, unspecified; D50.9 Iron deficiency anemia, unspecified; I34.1 Nonrheumatic mitral (valve) prolapse; G47.33 Obstructive sleep apnea (adult) (pediatric); M81.0 Age-related osteoporosis without current pathological fracture; M15.9 Polyosteoarthritis, unspecified; Z98.42 Cataract extraction status, left eye; Z98.41 Cataract extraction status, right eye; Z85.3 Personal history of malignant neoplasm of breast; Z96.612 Presence of left artificial shoulder joint; Z96.643 Presence of artificial hip joint, bilateral
CPT/HCPCS: 99213; G0463

== ENCOUNTER 2022-09-25 11:33 | Emergency (ER) | payer MEDICARE, SELFPAY ==
--- NOTE | 2022-09-25 11:49 | ED.URI ---
HPI - URI/Sore Throat General Chief Complaint: Upper Respiratory Infection Stated Complaint: Sinus Time Seen by Provider: 09/25/22 11:55 Source: patient Mode of arrival: ambulatory Limitations: no limitations History of Present Illness HPI Narrative: Craig is a 76-year-old female patient presenting to the clinic today with complaints of sinus drainage and nasal congestion x1 week. She reports he just recently got back from [place] in last week she had COVID. She denies any fever or chills currently. Has some clear nasal drainage and nasal drainage tripping in the back of her throat creating a cough. Denies any shortness of breath or chest pain. MD elicited complaint: nasal congestion Related Data Home Medications Medication Instructions Recorded Confirmed hydrochlorothiazide 12.5 mg tablet 12.5 mg PO DAILY 11/29/21 09/25/22 levothyroxine 75 mcg tablet 75 mcg PO DAILY 11/29/21 09/25/22 allopurinol 100 mg tablet 100 mg PO DAILY 08/19/22 09/25/22 losartan 50 mg tablet 50 mg PO DAILY 08/19/22 09/25/22 Allergies Allergy/AdvReac Type Severity Reaction Status Date / Time diclofenac Allergy Severe Swelling Verified 09/25/22 11:49 of Lip/Tongue/Throat Review of Systems Review of Systems: Pertinent positives per HPI. Patient denies any fever, chills, rash, headache, visual changes, dizziness, shortness of breath, chest pain, palpitations, nausea, vomiting, diarrhea, constipation, abdominal pain, or any urinary issues. [facility] Past Medical History Medical History (Updated 09/25/22 @ 11:51 by Maximo Gonzalez, EDUAR) Arthritis Cancer of left breast Status post lumpectomy and chemoradiotherapy. Chronic cough Hypercholesterolemia Hypertension Hypothyroidism Iron deficiency anemia Mitral valve prolapse Neck pain Cervical MRI in December 2019 showed advanced arthropathy causing significant mid cervical neural foraminal stenosis. Obstructive sleep apnea on CPAP Osteoarthritis, multiple sites Osteoporosis Surgical History Surgical History (Updated 07/04/20 @ 17:29 by Kristen Tang PA-C) History of bilateral cataract extraction History of left hip replacement History of left shoulder replacement History of lumpectomy of left breast As treatment for breast cancer. History of right hip replacement History of tubal ligation Family History Family History Other Diabetes mellitus Family history of coronary artery disease Family history of emphysema Social History Social History (Updated 07/04/20 @ 14:52 by Kristen Tang PA-C) Social History: The patient is and lives with her in [place]. Lifelong nonsmoker. No alcohol or illicit substance abuse. She designates her Arcenio as her surrogate decision maker and she wishes to be a full code. Smoking status: Never smoker Alcohol intake: current Drinks per week: 1 Substance use: never Substance use type: does not use Gender identity (if verbalized by the patient): Female Spiritual care concerns: No Comments At the time of my signature, I reviewed and agree with the nursing past medical, surgical, social, and family history. There is no relevant family history pertinent to the patient complaint. Exam Narrative: General: Well-developed, well nourished, in no apparent distress Head: Normocephalic, atraumatic Eyes: Pupils equally round and reactive to light bilaterally, EOM intact, sclera and conjunctive clear, no discharge, lids normal Ears: TMs intact and clear, ear canals clear, no drainage, grossly hearing normal. Nose: Nares patent, clear nasal discharge, no inflammation, no sinus tenderness. Mouth: Oral pharynx without lesions or masses, good dentition, MMM. Neck: Supple, trachea midline, no enlargement of anterior or posterior cervical nodes, no thyroid masses or goiter palpable. Cardio: Regular rate and rhythm, s1 and s2 n
[2022-09-25 11:51] VITALS: BP 130/73; PULSE 61; RESP 16; TEMP 37; O2SAT 99
== END 2022-09-25 11:59 | disposition home or self-care (01) ==
PROVIDERS: Emergency Provider Nurse Practitioner Family
DX: J06.9 Acute upper respiratory infection, unspecified (principal); I10 Essential (primary) hypertension; E03.9 Hypothyroidism, unspecified; Z85.3 Personal history of malignant neoplasm of breast
CPT/HCPCS: 99213; G0463

== ENCOUNTER 2023-09-13 10:40 | Emergency (ER) | payer MEDICARE, SELFPAY ==
--- NOTE | 2023-09-13 10:46 | ED.URI ---
HPI - URI/Sore Throat General Chief Complaint: Upper Respiratory Infection Stated Complaint: sinus infection Time Seen by Provider: 09/13/23 11:16 Source: patient and RN notes reviewed Mode of arrival: ambulatory Limitations: no limitations History of Present Illness HPI Narrative: 77-year-old female presents concern for sinus infection. She reports she had sinus surgery 2 weeks ago, 1 week ago she began having sinus pressure, drainage, pain. Reports copious amounts of drainage. Reports she was started on a steroid from her primary care provider about 5 days ago. She reports that is not I am making a difference in her symptoms are getting worse. She reports she is doing sinus rinses as well without relief. She is visiting from out of town MD elicited complaint: rhinorrhea, nasal congestion and sinus pain Related Data Home Medications Medication Instructions Recorded Confirmed hydrochlorothiazide 12.5 mg tablet 12.5 mg PO DAILY 11/29/21 09/13/23 levothyroxine 75 mcg tablet 75 mcg PO DAILY 11/29/21 09/13/23 allopurinol 100 mg tablet 100 mg PO DAILY 08/19/22 09/13/23 losartan 50 mg tablet 50 mg PO DAILY 08/19/22 09/13/23 folic acid 1 mg tablet 1 mg PO DAILY 09/13/23 09/13/23 methylprednisolone 4 mg tablets in See Rx Instructions .Route .COMPLEX 09/13/23 09/13/23 a dose pack montelukast 10 mg tablet 10 mg PO DAILY 09/13/23 09/13/23 Allergies Allergy/AdvReac Type Severity Reaction Status Date / Time diclofenac Allergy Severe Swelling Verified 09/13/23 10:55 of Lip/Tongue/Throat Review of Systems Review of Systems: CONSTITUTIONAL: Denies malaise, chills, sweats, or fever. EYES: Denies visual changes, redness, or discharge. ENT: Reports rhinorrhea, congestion, sinus pain, postnasal drainage CARDIOVASCULAR: Denies chest pain, palpitations, or edema. RESPIRATORY: Reports cough. Denies dyspnea. GASTROINTESTINAL: Denies abdominal pain, nausea, vomiting, diarrhea SKIN: Denies rash or itching. MUSCULOSKELETAL: Denies myalgia. NEUROLOGIC: Denies headache. All systems reviewed & are unremarkable except as noted in HPI and below PMFSH Past Medical History Medical History (Updated 09/13/23 @ 11:20 by Angela S. Hilmes, FOAM MOLDER) Arthritis Cancer of left breast Status post lumpectomy and chemoradiotherapy. Chronic cough Hypercholesterolemia Hypertension Hypothyroidism Iron deficiency anemia Mitral valve prolapse Neck pain Cervical MRI in December 2019 showed advanced arthropathy causing significant mid cervical neural foraminal stenosis. Obstructive sleep apnea on CPAP Osteoarthritis, multiple sites Osteoporosis Surgical History Surgical History (Updated 07/04/20 @ 17:29 by Kristen Tang PA-C) History of bilateral cataract extraction History of left hip replacement History of left shoulder replacement History of lumpectomy of left breast As treatment for breast cancer. History of right hip replacement History of tubal ligation Family History Family History Other Diabetes mellitus Family history of coronary artery disease Family history of emphysema Social History Social History (Updated 07/04/20 @ 14:52 by Kristen Tang PA-C) Social History: The patient is and lives with her in [place]. Lifelong nonsmoker. No alcohol or illicit substance abuse. She designates her Arcenio as her surrogate decision maker and she wishes to be a full code. Smoking status: Never smoker Alcohol intake: current Drinks per week: 1 Substance use: never Substance use type: does not use Gender identity (if verbalized by the patient): Female Spiritual care concerns: No Comments At time of signature, agree with nursing past medical, surgical, social and family history. There is no relevant family history pertinent to the presenting complaint Exam Narrative: GENERAL: Well-appearing, well-nourished, an
[2023-09-13 10:56] VITALS: BP 164/68; PULSE 59; RESP 16; TEMP 36.3; O2SAT 98
[2023-09-13 10:59] VITALS: BP 164/68; PULSE 59; RESP 16; TEMP 36.3; O2SAT 98
== END 2023-09-13 11:25 | disposition home or self-care (01) ==
PROVIDERS: Emergency Provider Nurse Practitioner
DX: J01.90 Acute sinusitis, unspecified (principal); M19.90 Unspecified osteoarthritis, unspecified site; E78.00 Pure hypercholesterolemia, unspecified; I10 Essential (primary) hypertension; E03.9 Hypothyroidism, unspecified; D50.9 Iron deficiency anemia, unspecified; G47.33 Obstructive sleep apnea (adult) (pediatric); M81.0 Age-related osteoporosis without current pathological fracture; Z98.42 Cataract extraction status, left eye; Z98.41 Cataract extraction status, right eye; Z85.3 Personal history of malignant neoplasm of breast; Z96.643 Presence of artificial hip joint, bilateral; Z96.612 Presence of left artificial shoulder joint; Z90.12 Acquired absence of left breast and nipple
CPT/HCPCS: 99213; G0463